=== PATIENT | female | born 1975 | race Hispanic/Latino ===

== ENCOUNTER → 2017-01-11 | Outpatient (CLI) | payer OTHER ==
[~2017-01-11] MED LIST: ACHYD1T PO; DCS100C PO; IBP600T1 PO
--- OUTSIDE RECORDS SUMMARY | 2017-01-11 14:03 | XMS REPORT ---
Author Author PEDRO FERNANDES [employer] Address Unknown Phone Unavailable Care Team Providers Care Job Placement Specialist Name Role Phone PEDRO FERNANDES CP Unavailable Allergies, Adverse Reactions, Alerts Substance Reaction Event Type N.K.D.A. Info Not Available Non Drug Allergy Problems Problem Type Condition Code Onset Dates Condition Status Problem Nonintractable migraine, unspecified migraine type G43.009 Active Problem Headache, unspecified headache type R51 Active Problem Encounter for dental examination Z01.20 Active Assessment Encounter for dental examination Z01.20 Active Problem Seasonal allergic reaction J30.2 Active Problem Allergic eczema L23.9 Active Medications No Known Medications Procedures Procedure Coding System Code Date INTRAORL-PERIAPICAL 1 FILM 18798 CPT-4 D0220 Jul 13, 2016 INTRAORL-PERIAPICAL EA ADD FILM CPT-4 D0230 Jul 13, 2016 PERIODIC ORAL EXAMINATION CPT-4 D0120 Jul 13, 2016 BITEWINGS - FOUR FILMS CPT-4 D0274 Jul 13, 2016 INTRAORL-PERIAPICAL EA ADD FILM CPT-4 D0230 Jul 13, 2016 TOPICAL FLUORIDE VARNISH CPT-4 D1206 Jul 13, 2016 Periodontal maint procedures CPT-4 D4910 Jul 13, 2016 Vital Signs Date/Time: Jul 13, 2016 Blood Pressure Diastolic 71 mmHg Blood Pressure Systolic 106 mmHg Cardiac Monitoring Heart Rate 61 bpm Results No Known Results Summary Purpose e[employer] Submission
--- NOTE | 2017-01-11 15:39 | Diagnostic Imaging Report ---
INDICATION: Uterine leiomyoma. TECHNIQUE: Transabdominal and transvaginal ultrasonography of the pelvis is performed. COMPARISON: Comparison is made to the examination of 05/12/2016. FINDINGS: Uterus measures 9.5 x 6.4 x 4.3 cm. There is no evidence of endometrial thickening. Multiple hypoechoic nodules are again seen within the uterine myometrium. This includes an approximately 2.1 x 1.7 x 1.4 cm nodule anteriorly which causes distortion of the endometrial stripe. This previously measured approximately 1.8 x 1.7 x 1.2 cm. There is also an approximately 1 cm fibroid seen anteriorly in the uterus. There is now an approximately 1.2 x 0.9 x 0.9 cm nodule to the right of the endometrium in the uterine body which was not definitely imaged on previous study. No free fluid is identified. Right ovary is unremarkable. The left ovary is not visualized and may be absent. IMPRESSION: Findings remain most compatible with uterine fibroids with what appears to be a new 1.2 x 0.9 x 0.9 cm leiomyoma to the right of midline. Clinical correlation and ultrasound followup would be of value. Dictated by: Dictated on workstation # [id number]
--- NOTE | 2017-01-11 18:13 | Diagnostic Imaging Report ---
Digital mammogram bilateral screening. This study was compared to the prior exams of 08/13/2014 and 02/05/2014. At this time, there are no current complaints. The current study was also evaluated with a Computer Aided Detection (CAD) system. FINDINGS: The fibroglandular tissue in both breasts is heterogeneously dense. This does limit the sensitivity of this exam. Overall, there does not appear to have been any significant change when compared to the prior study. No primary or secondary sign of malignancy is noted. IMPRESSION: 1. There is no radiographic evidence for malignancy. 2. The patient should have her annual bilateral screening mammogram on schedule in December 2017. ACR BI-RADS Category 1: Negative. Result letter will be mailed to the patient. Note: At least 10% of breast cancer is not imaged by mammography. Dictated by: Dictated on workstation # [id number]
== END ==
LOC: RAD 13:58
PROVIDERS: ATTEND Obstetrics & Gynecology
DX: Z12.31 Encounter for screening mammogram for malignant neoplasm of breast (principal); D25.1 Intramural leiomyoma of uterus
CPT/HCPCS: 76830; 76856; 77067

== ENCOUNTER → 2017-11-02 | Outpatient (CLI) | payer SELFPAY ==
--- NOTE | 2017-11-02 18:50 | Diagnostic Imaging Report ---
INDICATION: LEIOMYOMA OF UTERUS. TECHNIQUE: Transabdominal and transvaginal ultrasound of the pelvis. COMPARISON: 01/11/2017 FINDINGS: Redemonstrated is a heterogeneous hypoechoic anterior fibroid in the lower uterus, just to the left of midline, which causes mass effect on the endometrium. This measures 2.1 x 1.7 x 1.4 cm in size. This is unchanged since the prior study. The hypoechoic heterogeneous fibroid in the right uterus now measures 1.2 x 1.2 x 1.3 cm in size, which is mildly enlarged compared to 1.2 x 0.9 x 0.9 cm previously. The right ovary measures 3.3 x 2.3 x 2.0 cm, and demonstrates multiple dominant follicles, the largest measuring up to 1.4 cm in diameter. The uterus measures 8.6 x 6.6 x 4.7 cm, with an endometrial thickness of 9 mm. No endometrial vascular flow is seen. The left ovary is not seen, likely due to bowel gas. No free fluid is seen. IMPRESSION: 1. Stable left anterior uterine fibroid. Mildly increased size of the right uterine fibroid. 2. The right ovary appears normal with multiple dominant follicles. The left ovary is not seen. Dictated by: Dictated on workstation # [id number]
== END ==
LOC: RAD 17:09
PROVIDERS: ATTEND Obstetrics & Gynecology
DX: D25.1 Intramural leiomyoma of uterus (principal); D27.0 Benign neoplasm of right ovary
CPT/HCPCS: 76830; 76856

== ENCOUNTER 2017-12-09 08:31 | Outpatient (CLI) | payer SELFPAY ==
[~2017-12-09] VITALS: Ht 152.4 cm; Wt 62.4 kg
[2017-12-09 08:54] VITALS: BP 99/63
[2017-12-09 09:46] LABS: BASOPHILS % (AUTO) 0 % (0-10); EOSINOPHILS # (AUTO) 0.5 10^3/uL (0.0-0.3); EOSINOPHILS % (AUTO) 8 % (0-10); HEMATOCRIT 39 % (35-52); HEMOGLOBIN 13.8 G/DL (11.5-16.0); LYMPHOCYTES # (AUTO) 1.9 X 10^3 (1.0-4.0); LYMPHOCYTES % (AUTO) 28 % (12-44); MEAN CORPUSCULAR HEMOGLOBIN 33 PG (25-34); MEAN CORPUSCULAR HGB CONC 35 G/DL (32-36); MEAN CORPUSCULAR VOLUME 94 FL (80-99); MEAN PLATELET VOLUME 9.9 FL (7.4-10.4); MONOCYTES # (AUTO) 0.4 X 10^3 (0.0-1.0); MONOCYTES % (AUTO) 6 % (0-12); NEUTROPHILS # (AUTO) 3.8 X 10^3 (1.8-7.8); NEUTROPHILS % (AUTO) 57 % (42-75); PLATELET COUNT 240 10^3/uL (130-400); RED BLOOD COUNT 4.16 10^6/uL (4.35-5.85); RED CELL DISTRIBUTION WIDTH 12.3 % (10.0-14.5); WHITE BLOOD COUNT 6.7 10^3/uL (4.3-11.0)
== END 2017-12-09 10:27 | disposition home or self-care (01) ==
LOC: PREOP 08:31
PROVIDERS: ATTEND Obstetrics & Gynecology
DX: Z01.812 Encounter for preprocedural laboratory examination (principal); Z11.2 Encounter for screening for other bacterial diseases; D25.9 Leiomyoma of uterus, unspecified; R10.2 Pelvic and perineal pain; N93.8 Other specified abnormal uterine and vaginal bleeding
CPT/HCPCS: 36415; 85025; 86850; 86900; 86901; 87081

== ENCOUNTER → 2018-01-12 | Outpatient (CLI) | payer SELFPAY ==
[~2018-01-12] MED LIST changes: +DOCU100C37 PO; +Hydrocodone Bit/Acetaminophen PO; +IBUP-1773 PO; +SIME80TA16 PO
--- NOTE | 2018-01-12 18:17 | Diagnostic Imaging Report ---
INDICATION: Routine screening. COMPARISON: Comparison is made with prior study from 01/11/2017 and 02/05/2014. The current study was also evaluated with a Computer Aided Detection (CAD) system. FINDINGS: Both breasts again show moderate parenchymal heterogeneity and increased density, limiting the sensitivity of mammography. The parenchymal pattern is stable. No dominant mass or malignant appearing microcalcifications are seen. The axillae are unremarkable. IMPRESSION: No mammographic features suspicious for malignancy are identified. ACR BI-RADS Category 1: Negative. Result letter will be mailed to the patient. Note: At least 10% of breast cancer is not imaged by mammography. Dictated by: Dictated on workstation # [id number]
== END ==
LOC: RAD 09:20
PROVIDERS: ATTEND Obstetrics & Gynecology
DX: Z12.31 Encounter for screening mammogram for malignant neoplasm of breast (principal)
CPT/HCPCS: 77067